=== PATIENT | male | born 1965 ===

== ENCOUNTER 2021-07-09 06:03 | Emergency (ER) | payer OTHER ==
[~2021-07-09] VITALS: Ht 180.3 cm; Wt 102.1 kg
[2021-07-09 08:13] LABS: Eosinophils # (auto) 0.1 10 ^3/uL (0-0.8); Nucleated Red Blood Cells % 0.1 %
[2021-07-09 08:16] LABS: Basophils # (auto) 0 10 ^3/uL (0-0.2); Basophils % (auto) 0.3 % (0.0-2.0); Hematocrit 42.6 % (41.0-53.0); Hemoglobin 14.4 g/dL (13.5-17.5); Lymphocytes # (auto) 1.5 10 ^3/uL (0.4-5.4); Lymphocytes % (auto) 12.6 % (10.0-50.0); Mean Corpuscular Hemoglobin 29.8 pg (28.0-32.0); Mean Corpuscular Hgb Conc. 33.9 g/dL (32.0-36.0); Monocytes # (auto) 1.3 10 ^3/uL (0-1.3); Monocytes % (auto) 10.6 % (0.0-12.0); Neutrophils # (auto) 9.2 10 ^3/uL (1.6-8.6); Neutrophils % (auto) 75.5 % (37.0-80.0); Red Blood Cells 4.84 10^6/uL (4.5-5.90); Red Cell Distribution Width 12.5 % (11.8-14.3); White Blood Cell 12.2 10^3/uL (4.4-10.8)
[2021-07-09 08:34] LABS: Potassium 3.9 mmol/L (3.5-5.1)
[2021-07-09 08:45] LABS: Albumin 3.2 g/dL (3.4-5.0); BUN/Creatinine Ratio 18.1; Bilirubin, Total 0.4 mg/dL (0.2-1.0); Calcium 8.9 mg/dL (8.5-10.1); Total Protein 7.7 g/dL (6.4-8.2)
[2021-07-09] MEDS ORDERED: IOHEXOL 350 MG/ML 100ML IJ ONE ×2 (08:56→09:09)
[2021-07-09] MEDS ORDERED: CEPH-509 PO (09:43)
[2021-07-09] MEDS ORDERED: DEXA6TAB PO (09:44)
[2021-07-09] MEDS ORDERED: AZIT250T9 PO (09:44)
[2021-07-09 09:55] VITALS: BP 129/85
== END 2021-07-09 09:58 | disposition home or self-care (01) ==
LOC: ER 06:03
DX: U07.1 COVID-19 (principal); J12.82 Pneumonia due to coronavirus disease 2019
CPT/HCPCS: 36415; 71045; 71275; 80053; 83880; 84484; 85025; 85379; 93005; 99285; Q9967